=== PATIENT | female | born 2000 | race Caucasian/White ===

== ENCOUNTER 2021-10-17 12:55 | Emergency (ER) | payer OTHER ==
[2021-10-17 13:44] LABS: BASOPHIL 0.4 % (0-2); EOSINOPHIL 6.7 % (0-5); HCT 45.3 % (37.0-47.0); HGB 15.7 g/dl (12.5-16.0); MCHC 34.7 g/dL (32.0-36.0); MCV 80.7 fL (78.0-100.0); MONOCYTE 7.4 % (0-12); MPV 9.7 fL (6.0-9.5); NEUTROPHIL 55.9 % (41-80); NRBC 0; PLT 211 K/uL (150-400); RBC 5.61 M/uL (4.20-5.40); RDW 13.2 % (11.5-14.0); WBC 6.9 K/uL (4.0-10.5)
[2021-10-17 13:48] LABS: LYMPHOCYTE 29.2 % (15-48)
[2021-10-17 14:10] LABS: BUN/CREAT RATIO (CALC) 17.3 RATIO; CREATININE 0.81 mg/dL (0.51-0.95)
[2021-10-17] MEDS ORDERED: K-TAB ER20 MEQ PO (15:19)
[2021-10-17 15:30] LABS: BILIRUBIN NEGATIVE (NEGATIVE); BLOOD NEGATIVE Ery/uL (NEGATIVE); CLARITY CLEAR (CLEAR); COLOR YELLOW (YELLOW); GLUCOSE (U) NORMAL (NORMAL); LEUKOCYTES NEGATIVE Leu/uL (NEGATIVE); NITRITE NEGATIVE (NEGATIVE); PROTEIN NEGATIVE (NEGATIVE); SPECIFIC GRAVITY 1.025 (1.001-1.030); UROBILINOGEN 0.2 mg/dL (0.2-1.0)
[2021-10-17 16:00] LABS: ECSTASY (MDMA) NEGATIVE (NEGATIVE); MARIJUANA (THC) POSITIVE (NEGATIVE); METHADONE NEGATIVE (NEGATIVE); OPIATES NEGATIVE (NEGATIVE)
[2021-10-17 16:01] LABS: AMPHETAMINES NEGATIVE (NEGATIVE); BARBITURATES NEGATIVE (NEGATIVE); OXYCODONE NEGATIVE (NEGATIVE)
== END 2021-10-17 15:48 | disposition home or self-care (01) ==
LOC: FER 12:55
PROVIDERS: Nurse Practitioner Family
DX: E86.0 Dehydration (principal); E87.6 Hypokalemia
CPT/HCPCS: 36415; 80048; 80305; 81003; 85025; 99284; J7030